=== PATIENT | male | born 1965 ===

== ENCOUNTER 2017-11-23 13:51 | Inpatient (IN) | payer MEDICAID ==
--- NOTE | 2017-11-23 14:45 | C.PDOC ---
History Of Present Illness 52 y/o male presents to ED with requesting heroin detox. Notes he has been using for 30 yrs. 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 Time Seen by Provider: 11/23/17 14:08 Chief Complaint (Nursing): Substance Abuse History Per: Patient History/Exam Limitations: no limitations Onset/Duration Of Symptoms: Days Current Symptoms Are (Timing): Still Present Suicide/Self Injury Attempted (Context): None Past Medical History Reviewed: Historical Data, Nursing Documentation, Vital Signs Vital Signs: Last Vital Signs Temp 98.5 F 11/27/17 08:56 Pulse 78 11/27/17 08:56 Resp 20 11/27/17 08:56 BP 154/90 H 11/27/17 08:56 Pulse Ox 99 11/27/17 08:56 - Medical History PMH: No Chronic Diseases Surgical History: No Surg Hx Family History: States: No Known Family Hx - Social History Hx Alcohol Use: No Hx Substance Use: Yes - Immunization History Hx Tetanus Toxoid Vaccination: No Hx Influenza Vaccination: No Hx Pneumococcal Vaccination: No Review Of Systems Constitutional: Negative for: Fever, Chills Cardiovascular: Negative for: Chest Pain Respiratory: Negative for: Shortness of Breath Gastrointestinal: Negative for: Nausea, Vomiting Skin: Negative for: Rash Psych: Negative for: Suicidal ideation, Withdrawal Physical Exam - Physical Exam Appears: Non-toxic, No Acute Distress Skin: Warm, Dry, No Rash Head: Atraumatic, Normacephalic Eye(s): bilateral: Normal Inspection, EOMI Nose: Normal Oral Mucosa: Moist Neck: Normal ROM, Supple Cardiovascular: Rhythm Regular Respiratory: Normal Breath Sounds, No Rales, No Rhonchi, No Wheezing Gastrointestinal/Abdominal: Soft, No Tenderness, No Guarding, No Rebound Neurological/Psych: Oriented x3, Normal Speech, Normal Cognition ED Course And Treatment - Laboratory Results Result Diagrams: 11/23/17 14:45 11/23/17 14:45 O2 Sat by Pulse Oximetry: 99 (RA) Pulse Ox Interpretation: Normal Progress Note: Drug screen, Nicotine patch administered. Disposition - Disposition Disposition: HOSPITALIZED Disposition Time: 13:00 Condition: STABLE - Clinical Impression Clinical Impression: Opioid use disorder, severe, dependence - PA / COLLET DRILLER / Resident Statement MD/DO has reviewed & agrees with the documentation as recorded. - Scribe Statement The provider has reviewed the documentation as recorded by the Scribe Susy Caruso All medical record entries made by the Veroibkarlie were at my direction and personally dictated by me. I have reviewed the chart and agree that the record accurately reflects my personal performance of the history, physical exam, medical decision making, and the department course for this patient. I have also personally directed, reviewed, and agree with the discharge instructions and disposition.
[2017-11-23 14:48] LABS: BASO % 0.6 % (0.0-2.0); EOS # 0.3 K/uL (0.0-0.7); EOS % 5.2 % (0.0-4.0); HEMOGLOBIN 12.7 g/dL (12.0-18.0); LYMPH # 1.5 K/uL (1.0-4.3); LYMPH % 23.8 % (20.0-40.0); MEAN CELL VOLUME 75.5 fL (80.0-94.0); MEAN CORPUSCULAR HEMOGLOBIN 25.4 pg (27.0-31.0); MEAN CORPUSCULAR HGB CONC 33.6 g/dL (33.0-37.0); MEAN PLATELET VOLUME 7.7 fL (7.2-11.7); MONO # 0.5 K/uL (0.0-0.8); MONO % 7.5 % (0.0-10.0); NEUT # 3.8 K/uL (1.8-7.0); NEUT % 62.9 % (50.0-75.0); RBC 5.02 Mil/uL (4.40-5.90); RED CELL DISTRIBUTION WIDTH 15.1 % (11.5-14.5); WHITE BLOOD COUNT 6.1 K/uL (4.8-10.8)
[2017-11-23 14:53] LABS: URINE BILIRUBIN NEGATIVE (NEGATIVE); URINE BLOOD NEGATIVE (NEGATIVE); URINE CLARITY Clear (Clear); URINE COLOR Yellow (YELLOW); URINE GLUCOSE (UA) NORMAL (Normal); URINE LEUKOCYTE ESTERASE NEG Leu/uL (Negative); URINE PROTEIN NEGATIVE (NEGATIVE)
[2017-11-23 15:08] LABS: ALB/GLOB RATIO 1.4 (1.0-2.1); ALBUMIN 4.1 g/dL (3.5-5.0); ALT/SGPT 29 U/L (21-72); AST/SGOT 30 U/L (17-59); BLOOD UREA NITROGEN 14 mg/dL (9-20); CALCIUM 9.4 mg/dl (8.6-10.4); GFR AFRICAN-AMERICAN > 60; GFR NON-AFRICAN AMERICAN > 60
[2017-11-23 15:21] LABS: BARBITURATES, UR NEGATIVE (NEGATIVE); BENZODIAZEPINES, UR NEGATIVE (NEGATIVE); PHENCYCLIDINE, UR NEGATIVE (NEGATIVE)
[2017-11-23 15:43] LABS: OPIATES, UR POSITIVE (NEGATIVE)
--- NOTE | 2017-11-23 20:21 | PCM.BM ---
<Janessa Clement - Last Filed: 11/23/17 20:20> Treatment assets and liabiliti Patient Assests: adapts well, self-reliant, ADL independent, negotiates basic needs, cognitively intact Patient Liabilities: financial problems, relationship conflicts, substance abuse - Milieu Protocol Maintain good personal hygiene: every shift Encourage regular showers, every shift Remind patient to perform daily oral care, every shift Assist patient to perform ADL's Maintain personal safety: every shift Educate patient to report safety concerns to staff, every shift Monitor environment for contraband/sharps Medication safety: Monitor for expected outcome, potential side effects: every shift, Assess barriers to learning: every shift, Assess readiness for medication education: every shift <Melodie Valentine - Last Filed: 11/27/17 13:24> - Diagnosis (1) Opioid use disorder, severe, dependence Status: Acute Interventions: 11/27/17 13:24 * Assess 7x/week regarding severity of withdrawal * Educate regarding risks, benefits, side effects and alternatives of medications * Use Motivational Interviewing for abstinence * Use CBT for relapse prevention * Medication management for withdrawal symptoms * Encourage medication assisted treatment *
[2017-11-23] MEDS ORDERED: Aluminum Hydroxide/Magnesium Hydroxide Susp (30 mL) PO PRN (22:25)
[2017-11-24] MEDS ORDERED: Buprenorphine Hydrochloride 2 mg SL ONE ×3 (00:37→13:00)
--- NOTE | 2017-11-24 07:02 | PCM.PSYCH ---
Initial Psychiatric Evaluation - Initial Psychiatric Evaluation Type of Admission: Voluntary Legal Status: Capacity Chief Complaint (in patient's own words): I need help.' History of Present Illness and Precipitating Events: This is a 52 year old HM, who lives with his sister, currently unemployed, came to the ED to get help in opiate detox. Patient reports a long history of abusing heroin, for the past 30 years. Patient reports it was his cousin who introduced him to heroin on his birthday as a present. Patient reports of using 15 bags of heroin intra-nasally a day. His last use was yesterday. Patient has plans to return to work and get . Patient reports his girlfriend is also an addict but is in a MMTP. He denies any past history of inpatient psychiatric hospitalizations or any follow-up with any psychiatrist. Patient reports a history of one previous detox admission to [facility] in 2004. Patient was able to maintain 6 months clean post discharge. This was patients longest period of sobriety with the exception of time in which he was incarcerated. He reports irritability, but denies any feelings of hopelessness and helplessness. He denies suicidal ideation or homicidal ideations. he denies any auditory or visual hallucinations or any psychosis. He reports withdrawal symptoms from heroin including nausea, vomiting, diarrhea, abdominal cramps and pains. Past medical history None reported Current Medications: Active Medications Generic Name Dose Route Start Last Admin Trade Name Freq PRN Reason Stop Dose Admin Acetaminophen 650 mg 11/23/17 22:25 Tylenol 325mg Tab PO Q4H PRN Fever greater than 101 F Al Hydrox/Mg Hydrox/Simethicone 30 ml 11/23/17 22:25 Maalox 30 Ml PO TID PRN Indigestion / Heartburn Aspirin 325 mg 11/24/17 10:00 Ecotrin PO DAILY ONUR Clonidine HCl 0.1 mg 11/23/17 17:24 11/24/17 02:25 Catapres PO 0.1 mg Q8 PRN Administration Hypertension Hydroxyzine HCl 25 mg 11/23/17 22:25 Atarax PO Q6 PRN Anxiety Loperamide HCl 2 mg 11/23/17 22:25 Imodium PO Q8 PRN Diarrhea Ondansetron HCl 4 mg 11/23/17 22:25 Zofran Tab PO Q8 PRN Nausea/Vomiting Pseudoephedrine HCl 60 mg 11/23/17 22:25 Sudafed Tab PO QID PRN Nasal/Sinus Congestion Trazodone HCl 50 mg 11/23/17 22:30 11/23/17 22:42 Desyrel PO Not Given HS ONUR Past Psychiatric History - Past Psychiatric History Previous Treatment History: Inpatient Pertinent Medical Hx (Current Medical&Sleep Prob, Allergies): Allergies Allergy/AdvReac Type Severity Reaction Status Date / Time No Known Allergies Allergy Unverified 11/23/17 14:00 Aspirin [Aspirin EC] 325 mg PO DAILY 11/23/17 Review of Systems - Review of Systems All systems: reviewed and no additional remarkable complaints except - Psychiatric Psychiatric: Anxiety, Irritability. absent: Suicidal Ideation Mental Status Examination - Personal Presentation Personal Presentation: Looks stated age - Affect Affect: Constricted - Motor Activity Motor Activity: Calm - Reliability in Providing Information Reliability in Providing Information: Fair - Speech Speech: Organized - Mood Mood: Anxious - Formal Thought Process Formal Thought Process: No Impairment - Obsessions/Compulsions Obsessions: No Compulsions: No - Cognitive Functions Orientation: Person, Place, Situation, Time Sensorium: Alert Attention/Concentration: Attentive Abstract Thinking: [place] Estimate of Intelligence: Below average Judgement: Imparied, as evidence by: Poor judgement, Imparied, as evidence by: Lack of insight into illness - Risk Risk: Withdrawal, Diminished functioning - Strength & Assets Inventory Strength & Assets Inventory: Family support DSM 5 DX - DSM 5 DSM 5 Diagnosis: Opioid use disorder severe Opioid withdrawal - Recommended/Plan of Treatment Treatment Recommendations and Plan of Treatment: Opioid use disorder severe CBT Psychoeducation Supportive therapy, individual therapy Use [place] for abstinence Opioid withdrawal CBT Psychoeducation Supportive therapy, individual therapy Clonidine when necessary Subutax taper As needed medications Insomnia Trazodone - Smoking Cessation Smoking Cessation Initiated: Yes
[2017-11-24] MEDS: Aspirin 325 mg EC Tablets PO SCH (10:24)
[2017-11-25] MEDS ORDERED: Buprenorphine Hydrochloride 2 mg SL ONE (09:00)
[2017-11-25] MEDS: Aspirin 325 mg EC Tablets PO SCH (09:02)
--- NOTE | 2017-11-25 16:01 | PCM.PYCHPN ---
Psychiatric Progress Note - Psychiatric Progress Note Patient seen today, length of contact: 15 min Patient Chief Complaint: I am still withdrawing.' Problems Identified/Issues Discussed: Patient seen and evaluated, chart reviewed and discussed with the nurse. Patient reports withdrawal symptoms including nausea, cramps, sweating and headaches. He denies any feelings of hopelessness and helplessness. Patient denies any auditory or visual hallucinations, or any psychotic symptoms. He reports improvement in his sleep and appetite. He is tolerating the withdrawal medications and denies any side effects. Supportive therapy and psychoeducation were given. Medication Change: Yes (Subutex taper) Medical Record Reviewed: Yes Mental Status Examination - Cognitive Function Orientation: Person, Place, Situation, Time Memory: Intact Attention: WNL Concentration: Poor Association: WNL Fund of Knowledge: Poor - Mood Mood: Anxious - Affect Affect: Constricted - Speech Speech: Soft - Formal Thought Process Formal Thought Process: No Impairment - Suicidal Ideation Suicidal Ideation: No - Homicidal Ideation Homicidal Ideation: No Goal/Treatment Plan - Goal/Treatment Plan Need for Continued Stay: Severe depression anxiety, Severe functional impairment Progress Toward Problem(s) and Goals/Treatment Plan: Opioid use disorder severe CBT Psychoeducation Supportive therapy, individual therapy Use [place] for abstinence Opioid withdrawal CBT Psychoeducation Supportive therapy, individual therapy Clonidine when necessary Subutax taper As needed medications Insomnia Trazodone - Smoking Cessation Smoking Cessation Initiated: No
[2017-11-26] MEDS ORDERED: Buprenorphine Hydrochloride 2 mg SL ONE (09:00)
--- NOTE | 2017-11-26 09:09 | PCM.PYCHPN ---
Psychiatric Progress Note - Psychiatric Progress Note Patient seen today, length of contact: 15 min Patient Chief Complaint: I am still withdrawing.' Problems Identified/Issues Discussed: Patient seen and evaluated, chart reviewed and discussed with the nurse. Patient reports withdrawal symptoms including nausea, cramps, sweating and headaches. He denies any feelings of hopelessness and helplessness. Patient denies any auditory or visual hallucinations, or any psychotic symptoms. He reports improvement in his sleep and appetite. He is tolerating the withdrawal medications and denies any side effects. Supportive therapy and psychoeducation were given. Medication Change: Yes (Subutex taper) Medical Record Reviewed: Yes Mental Status Examination - Cognitive Function Orientation: Person, Place, Situation, Time Memory: Intact Attention: WNL Concentration: Poor Association: WNL Fund of Knowledge: Poor - Mood Mood: Anxious - Affect Affect: Constricted - Speech Speech: Soft - Formal Thought Process Formal Thought Process: No Impairment - Suicidal Ideation Suicidal Ideation: No - Homicidal Ideation Homicidal Ideation: No Goal/Treatment Plan - Goal/Treatment Plan Need for Continued Stay: Severe depression anxiety, Severe functional impairment Progress Toward Problem(s) and Goals/Treatment Plan: Opioid use disorder severe CBT Psychoeducation Supportive therapy, individual therapy Use [place] for abstinence Opioid withdrawal CBT Psychoeducation Supportive therapy, individual therapy Clonidine when necessary Subutax taper As needed medications Insomnia Trazodone
[2017-11-26] MEDS: Aspirin 325 mg EC Tablets PO SCH (09:55)
--- NOTE | 2017-11-27 08:52 | PCM.PYCHDC ---
Mental Status Examination - Mental Status Examination Orientation: Person, Place, Situation, Time Memory: Intact Mood: Anxious Affect: Broad Speech: Appropriate Attention: WNL Concentration: WNL Association: WNL Fund of Knowledge: WNL Formal Thought Process: No Impairment Suicidal Ideation: No Current Homicidal Ideation?: No Discharge Summary - Discharge Note Consultations:: List each consultation separately and include: 1. Reason for request. 2. Findings. 3. Follow-up Summary of Hospital Course include:: 1. Description of specific treatment plan utilized for patients during their course of treatmen. 2. Summarize the time- course for resolution of acute symptoms and/or regressed behaviors. 3. Describe issues identified and worked on during hospitalization. 4. Describe medication utilized. 5. Describe medical problems identified and treated. 6. Reassessment of suicide risk Summary of Hospital Course: The pt was admitted and started on treatment with psychotherapy, support, psychoeducation and medications. AR and CBT used. The pt attended groups and activities, as well as milieu therapy. All the risks and benefits of medications are discussed and the patient understood and agreed. The pt improved with the treatments provided. After care discussed with the patient. He will go to a suboxone dr in [place] and [facility]. He wants to work. - Final Diagnosis (DSM 5) Condition upon Discharge: GOOD DSM 5: Opioid use disorder severe Opioid withdrawal Disposition: HOME/ ROUTINE Follow-up Treatment Plan: Continue below medications after discharge. Follow after care plan as discussed. Use relapse prevention skills Return to ER or call 911 if suicidal, homicidal or symptoms relapse. Stay away from stress, alcohol and drugs. See primary doctor regularly and get labs. Prescriptions/Medication Reconciliation: Aspirin [Aspirin EC] 325 mg PO DAILY #30 tablet. traZODone [Desyrel] 50 mg PO HS #30 tab - Smoking Cessation Smoking Cessation Medication prescribed: No - Antipsychotic Medications Pt discharged on 2 or more routine antipsychotic medications: No
[2017-11-27 08:56] VITALS: BP 154/90; PULSE 78; RESP 20; TEMP 98.5; O2SAT 99
[2017-11-27] MEDS ORDERED: Buprenorphine Hydrochloride 2 mg SL ONE (09:00)
[2017-11-27] MEDS: Aspirin 325 mg EC Tablets PO SCH (09:10)
== END 2017-11-27 09:55 | disposition home or self-care (01) | DRG 745 ==
LOC: C.ER 13:51 → C.7D 15:53
PROVIDERS: ADMIT Psychiatry & Neurology Psychiatry; ATTEND Psychiatry & Neurology Psychiatry
PROC: HZ2ZZZZ Detoxification Services for Substance Abuse Treatment (ICD-10-PCS; principal; 2017-11-23)
PROC: HZ59ZZZ Individual Psychotherapy for Substance Abuse Treatment, Supportive (ICD-10-PCS; 2017-11-23)
PROC: HZ46ZZZ Group Counseling for Substance Abuse Treatment, Psychoeducation (ICD-10-PCS; 2017-11-23)
DX: F11.23 Opioid dependence with withdrawal (principal); G47.00 Insomnia, unspecified; F17.210 Nicotine dependence, cigarettes, uncomplicated